=== PATIENT | male | born 1995 | race Caucasian/White ===

== ENCOUNTER → 2024-04-19 10:59 | Outpatient (ROUT) | payer BC, SELFPAY ==
[2024-04-19 11:27] LABS: Body Fluid Red Blood Cells 2007 /uL; Body Fluid Tot Nucleated Cells 4474 /uL
[2024-04-19 11:29] LABS: Crystals Body Fluid - IN-HOUSE NONE Present
[2024-04-19 11:35] LABS: Body Fluid Appearance HAZY; Body Fluid Clotted? NO CLOTS PRESENT; Body Fluid Color YELLOW
[2024-04-19 12:26] LABS: Lymphocytes Body Fluid 5 %; Neutrophils Body Fluid 95 %
== END ==
PROVIDERS: Family Provider Family Medicine; PCP Family Medicine; Visit Provider Family Medicine
DX: M25.561 Pain in right knee (principal)
CPT/HCPCS: 87070; 87075; 87205; 89051; 89060